=== PATIENT | female | born 1985 | race Caucasian/White ===

== ENCOUNTER 2018-11-11 18:13 | Inpatient (IN) | payer MEDICAID, SELFPAY ==
[~2018-11-11] VITALS: Ht 160 cm; Wt 72.0 kg
[2018-11-12] MEDS ORDERED: MAALOX 30 ML SUSP *UDC PO PRN (14:45)
[2018-11-12] MEDS ORDERED: ACETAMINOPHEN TAB 650MG DOSE (2X325MG) PO PRN (14:45)
[2018-11-12] MEDS ORDERED: MOM 30ML SUSPENSION UDC PO PRN (14:45)
[2018-11-12] MEDS ORDERED: LORazepam 2 MG TAB PO PRN (14:45)
[2018-11-12] MEDS: MULTIVITAMINS/MINERALS THERAP 1 TAB PO SCH (18:05)
[2018-11-12] MEDS: NICOTINE 21MG/24HR 1 EA TRANSDERMAL TD SCH (18:05)
[2018-11-12] MEDS: THIAMINE 100 MG TAB PO SCH (18:05)
[2018-11-12] MEDS: FOLIC ACID 1 MG TAB PO SCH (18:05)
[2018-11-12 20:04] VITALS: BP 135/88
[2018-11-12 20:08] VITALS: BP 135/88
[2018-11-12] MEDS ORDERED: SERTRALINE HCL 50 MG TAB PO SCH (21:00)
[2018-11-12] MEDS ORDERED: QUEtiapine FUMARATE 50 MG TAB PO SCH (21:00)
[2018-11-13 06:31] VITALS: BP 148/87
[2018-11-13 07:33] VITALS: BP 148/87
[2018-11-13] MEDS: THIAMINE 100 MG TAB PO SCH (09:06)
[2018-11-13] MEDS: NICOTINE 21MG/24HR 1 EA TRANSDERMAL TD SCH (09:06)
[2018-11-13] MEDS: MULTIVITAMINS/MINERALS THERAP 1 TAB PO SCH (09:06)
[2018-11-13] MEDS: FOLIC ACID 1 MG TAB PO SCH (09:06)
--- NOTE | 2018-11-13 13:28 | MHHPEPDOC ---
General Date Of Admission: January 11, 2019 Legal Status: 9.39 Chief Complaint "Pt was transferred from [facility] after being medically cleared. She took an OD of Motrin & sleeping pills while intoxicated". History of Present Illness HISTORY OF THE PRESENT ILLNESS: Patient is a 32 -year-old , female, who as per ED report: "Pt states that she was drinking & wanted to take a couple Mo shalini so that she would not wake up with a headache but she ended up taking 20 of them plus 4 OTC sleeping pills. Pt denies SI & states the only reason she took the OD was because she was intoxicated & not thinking clearly. Main triggers are that she recently quit her job & she was engaged to a boyfriend of 17 years that she has two children with but then she met someone else. She is currently with the new boyfriend but feels that she has to "please everyone" & should go back to her fiance even though she is no longer in love with him. Pt c/o anxiety & erratic sleep. She denies all other mental health sx's, including depression. Pt denies any prior suicide attempts. She has no OP tx. Her EDUARDO on admission to [facility] was 0.166 & her tox screen was negative for any drugs". Psychiatric Review of Systems Depression (2 or more weeks): denies Ivdhi (4 or more days of): denies Psychosis: denies PTSD: denies Anxiety: situational anxiety, panic attacks Past Psychiatric History Previous Psychiatric Diagnosis: Panic attacks, she says she had major ones x 3 but she has had "minor ones" once or twice/year, so, she takes deep breaths or goes for a walk... Previous Psychiatric Admissions: Denies Suicide Attempts: Denies Psychiatric Follow-up: Denies Psychiatric medications: Xanax was prescribed in the past, a few years back but she only took one because she felt "like a zombie" and she didn't want to bcome addicted to it. Past Medical History Head Injury: No Seizures: No Hospitalizations: Yes (She had a problem with her heart, but she doesn't remember what caused the problem, she says "it felt like an elephant sitting on her chest", she says she was told it was inflammation of her heart. She recived medications for it and it went away . She delivered two children (vaginal delivery)) Surgeries: No Family Medical/Psychiatric HX Medical Problems Mother has high blood pressure, high cholesterol. Father has COPD, sister has lupus Psychiatric Disorders: No Addiction: No Suicide Attemps/Completions: No Addiction History nicotine (A pack/day for about 15 years), alcohol (occasionally (once /weekend), 10-12 beers and occasionally she adds 5 shots if she is at the bar) Social History Childhood: "Great". She has 3 sisters, got along with them. She was close to her parents "I'm not bragging about being janie's little girl". She enjoyed going to school. Abuse/Trauma: Denies Current Living Situation: She lives with her boyfriend, her children are at their grandparents (paternal) Education: HS diploma, she wanted to go to College but couldn't because of the money factor Employment: Unemployed Social Support: Boyfriend, mother Legal: Denies Marital: , has 2 children (11 and 7) Mental Status Examination General Appearance: well groomed, appears stated age, hospital scubs/clothing Build: average Demeanor: average Eye Contact: average Activity: average Behavior: cooperative Speech: spontaneous, reg/rate,rhythm,volume Mood: anxious Affect: full, appropriate, congruent, anxious Thought Process: logical/linear Thought Content (Delusions): none reported Thought Content (Other): none reported Thought Content (Aggressive): none reported Perception (Hallucinations): none reported Perception (Other): none reported Cognition (Impairment of): none reported Cognition(Intelligence Est.): average Oriented: Awake, Alert, Oriented times three Insight: fair Judgment: Fair Psychosis: Denies Diagnoses 1. Other specified mood disorder 2. Generalized anxiety disorder 3. h/ Panic attacks Assessment Patient is pleasant and cooperative, she's not depressed, she is anxious and has a nicotine use d/o plus alcohol use disorder but she is not insightful, she says she can quit her alcohol use/abuse and nicotine use/abuse. Discussed this problem with her but she became a little bit Problem List Problems: (1) Alcohol abuse Status: Chronic Initial Treatment Plan 1. Patient was admitted on a [9.39] status. 2. Complete history was obtained. 3. With patients permission, family will be contacted and database will be expanded. 4. Patients medication regimen will be reviewed and changed accordingly. 5. Patient will be provided with protected environment. 6. Patient will be treated with individual, group, and milieu therapies. 7. Patient will receive supportive psych-education. 8. Discharge planning will commence immediately. 9. Outpatient follow-up treatment will be strongly recommended. 10. The initial treatment plan will focus initially on: * Depression. * Risk for suicide. * Substance abuse. ESTIMATED LENGTH OF STAY: 5-7 DAYS. TIME SPENT COUNSELING AND COORDINATING INITIAL CARE: 50 minutes. Vital Signs Vital Signs Date Time Temp Pulse Resp B/P (MAP) Pulse Ox O2 Delivery O2 Flow Rate FiO2 11/13/18 07:33 75 148/87 11/13/18 06:31 99.2 18 11/12/18 20:08 100 11/12/18 11:46 Room Air Medications No Active Prescriptions or Reported Meds Allergies Coded Allergies: No Known Allergies (Unverified , 11/11/18) TRINA HUGHES MD Nov 13, 2018 11:05
[2018-11-13] MEDS ORDERED: SERT-141 PO (13:34)
[2018-11-13] MEDS ORDERED: VITMTA PO (13:34)
[2018-11-13] MEDS ORDERED: THIA100TA PO (13:34)
[2018-11-13] MEDS ORDERED: NICO21PAT TD (13:34)
[2018-11-13] MEDS ORDERED: QUET5TAB PO (13:34)
--- NOTE | 2018-11-17 14:59 | MHDSPDOC ---
[facility] Discharge Summary Discharge Summary DATE OF ADMISSION: Nov 12, 2018 at 14:44 DATE OF DISCHARGE: Nov 13, 2018 at 14:35 DISCHARGE DIAGNOSES: 1. Other specified mood disorder 2. Generalized anxiety disorder 3. h/ Panic attacks REASON FOR ADMISSION: Chief Complaint "Pt was transferred from [facility] after being medically cleared. She took an OD of Motrin & sleeping pills while intoxicated". History of Present Illness HISTORY OF THE PRESENT ILLNESS: Patient is a 32 -year-old , female, who as per ED report: "Pt states that she was drinking & wanted to take a couple Motrin so that she would not wake up with a headache but she ended up taking 20 of them plus 4 OTC sleeping pills. Pt denies SI & states the only reason she took the OD was because she was intoxicated & not thinking clearly. Main triggers are that she recently quit her job & she was engaged to a boyfriend of 17 years that she has two children with but then she met someone else. She is currently with the new boyfriend but feels that she has to "please everyone" & should go back to her fiance even though she is no longer in love with him. Pt c/o anxiety & erratic sleep. She denies all other mental health sx's, including depression. Pt denies any prior suicide attempts. She has no OP tx. Her EDUARDO on admission to [facility] was 0.166 & her tox screen was negative for any drugs". CONSULTANTS INVOLVED: None TREATMENT AND PROGRESS ON THE UNIT : The patient was pleasant and cooperative and she adamantly denied having suicidal ideation. she admits that it was a mistake to have used Motrin while she was under the influence of alcohol. The patient is going through a difficult time in her life and although she has been drinking alcohol she rationalizes and says she can control that, she says she can take care of it, refused the idea of going to or [facility]. This teletypewriter installer explained how alcohol can worsen depression and how it had affected hr judgement, so much, that she had taken several Motrin tablets and 4 OTC pills. She denies symptoms of depression and being suicidal. She didn't look depressed, not anxious. She was goal orientated although she knew she had to find a solution to the problems in her life that had triggered her drinking on this occasion. While being at [facility] she took Seroquel and Zoloft, both of them 50 mgs and she denied medication side effects. she also took folic acid, 1 mg po daily, Multivitamins, 1 tab po daily and Thiamine 100 mgs Po bid as par to of the alcohol withdrawal protocol. Included in this protocol i Ativan 2 mgs that is given by staff if patients are presenting with withdrawal symptoms but she didn't needed. HOSPITAL COURSE: As above DISCHARGE ASSESSMENT: The patient was not suicidal, not homicidal and not psychotic. She had been recnetly started on Zoloft and Seroquel and she denied medication side effects, in fact, she said she felt fine. She was goal orientated. MENTAL STATUS EXAMINATION ON DISCHARGE: General Appearance: well groomed, appears stated age, hospital scubs/clothing Build: average Demeanor: average Eye Contact: average Activity: average Behavior: cooperative Speech: spontaneous, reg/rate,rhythm,volume Mood: anxious Affect: full, appropriate, congruent, anxious Thought Process: logical/linear Thought Content (Delusions): none reported Thought Content (Other): none reported Thought Content (Aggressive): none reported Perception (Hallucinations): none reported Perception (Other): none reported Cognition (Impairment of): none reported Cognition(Intelligence Est.): average Oriented: Awake, Alert, Oriented times three Insight: fair Judgment: Fair Psychosis: Denies MEDICATIONS ON DISCHARGE: Scheduled Multivitamins *[facility] STOCKED* (Thera M Plus *[facility] STOCKED*) 1 Tab Tab, 1 TAB PO DAILY for withrawals, #7 Nicotine (Nicotine Transdermal Syst) 21 Mg/24 Hr Dis, 1 PATCH TD DAILY for nicotine withdrawals, #7 Quetiapine Fumerate (Quetiapine Fumarate) 50 Mg Tab, 50 MG PO QHS for insomnia, #7 Sertraline Hcl (Sertraline HCl) 50 Mg Tab, 50 MG PO QHS for depression, #7 Thiamine Hcl (Thiamine Hcl) 100 Mg Tab, 100 MG PO BID for alcohol withdrawals, #14 PLAN/FOLLOWUP ARRANGEMENTS: Follow Up Care Education Label * Medical * Medical Follow Up [facility] * Established With This Provider Yes * Therapist EMILIA CALVERT * Date Nov 22, 2018 * Time 13:00 * Follow Up Care Education Label * Mental Health Appt 1 * Mental Health [facility] * Established With This Provider No * Therapist JESSICA * Date Nov 16, 2018 * Time 09:00 * * Additional information Please arrive 15 minutes early to fill out new patient paperwork. Remember to bring your insurance card and photo ID. The amount of time spent in the coordination of care for this patient was approximately 30 minutes. Vital Signs/I&Os Vital Signs Date Time Temp Pulse Resp B/P (MAP) Pulse Ox O2 Delivery O2 Flow Rate FiO2 11/13/18 07:33 75 148/87 11/13/18 06:31 99.2 18 11/12/18 20:08 100 11/12/18 11:46 Room Air Medications Scheduled Multivitamins *[facility] STOCKED* (Thera M Plus *[facility] STOCKED*) 1 Tab Tab, 1 TAB PO DAILY for withrawals, #7 Nicotine (Nicotine Transdermal Syst) 21 Mg/24 Hr Dis, 1 PATCH TD DAILY for nicot ine withdrawals, #7 Quetiapine Fumerate (Quetiapine Fumarate) 50 Mg Tab, 50 MG PO QHS for insomnia, #7 Sertraline Hcl (Sertraline HCl) 50 Mg Tab, 50 MG PO QHS for depression, #7 Thiamine Hcl (Thiamine Hcl) 100 Mg Tab, 100 MG PO BID for alcohol withdrawals, #14 Allergies Coded Allergies: No Known Allergies (Unverified , 11/11/18) TRINA HUGHES MD Nov 17, 2018 14:52
== END 2018-11-13 14:35 | disposition home or self-care (01) | DRG 753 ==
LOC: M ED 18:13 → M ED INP 11-12 14:44 → M PSY 11-12 16:45
PROVIDERS: ADMIT Psychiatry & Neurology Psychiatry; ATTEND Psychiatry & Neurology Psychiatry
DX: F31.89 Other bipolar disorder (principal); F41.1 Generalized anxiety disorder; F17.210 Nicotine dependence, cigarettes, uncomplicated; F10.10 Alcohol abuse, uncomplicated; F41.0 Panic disorder [episodic paroxysmal anxiety]